=== PATIENT | female | born 1955 | race Caucasian/White ===

== ENCOUNTER → 2019-01-20 | Outpatient (REF) ==
--- NOTE | 2019-01-20 10:12 | Diagnostic Imaging Report ---
Indication: Occupational exposure to beryllium. Time of exam: 10:04 AM No prior studies available for comparison. The lungs are clear. No infiltrates are seen. Pulmonary vascularity is normal. The heart size is normal. There is no effusion or pneumothorax. Impression: No acute feature detected. Dictated by: Dictated on workstation # [id number]
== END | disposition home or self-care (01) ==
LOC: OCC 09:34
PROVIDERS: ATTEND Nurse Practitioner Family
CPT/HCPCS: 71045